=== PATIENT | female | born 1995 | race African-American/Black ===

== ENCOUNTER 2017-05-05 14:14 | Emergency (ER) | payer MEDICAID ==
[~2017-05-05] VITALS: Ht 162.6 cm; Wt 100.0 kg
[2017-05-05 14:16] VITALS: BP 117/76; PULSE 79; RESP 15; TEMP 98.2; O2SAT 99
[2017-05-05] MEDS ORDERED: IBUP800T23 PO (14:56)
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
[2017-05-05] MEDS ORDERED: IBUPROFEN 800 MG TAB PO ONE (15:00)
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
== END 2017-05-05 16:38 | disposition home or self-care (01) ==
LOC: NEPK 14:14
DX: S99.912A Unspecified injury of left ankle, initial encounter (principal); W50.0XXA Accidental hit or strike by another person, initial encounter; J45.909 Unspecified asthma, uncomplicated; Z72.0 Tobacco use
CPT/HCPCS: 73610; 99283; E0113; L1906

== ENCOUNTER 2017-06-27 10:33 | Emergency (ER) | payer MEDICAID ==
[~2017-06-27] VITALS: Ht 162.6 cm; Wt 100.0 kg
[~2017-06-27 10:33] MED LIST: IBUP800T23 PO
[2017-06-27 10:35] VITALS: BP 125/77; PULSE 80; RESP 18; TEMP 98.5; O2SAT 96
--- NOTE | 2017-06-27 11:29 | PD ---
HPI Chief Complaint: Skin Problem Time Seen by Provider: 11:27 Travel History International Travel<30 days: No Contact w/Intl Traveler<30days: No Traveled to known affect area: No History of Present Illness HPI 22-year-old female presents to emergency department with complaint of bedbug bites to her left wrist area, right forearm area, and left flank area for the past few days. Rash is itchy. Mother has the same rash. Denies fever, vomiting. Has not taken any medication or treatments to relieve her symptoms. Denies new exposure to lotions, soaps, detergents, medications, foods, environmental exposures. Symptoms are mild in severity. Allergies to penicillin, cefaclor, montelukast. Has no medical complaints. No known relieving or aggravating factors. No other modifying factors or associated signs and symptoms. History Past Medical Histgory LMP: 06/2017 Social History Alcohol Use: Yes Tobacco Use: Yes Allergies-Medications (Allergen,Severity, Reaction): Coded Allergies: Penicillins (Verified Allergy, Severe, Anaphylaxis, 06/27/17) cefaclor (Verified Allergy, Severe, Anaphylaxis, 06/27/17) montelukast (Verified Allergy, Severe, Anaphylaxis, 06/27/17) Reported Meds & Prescriptions Reported Meds & Active Scripts Active Ibuprofen 800 Mg Tab 800 Mg PO Q6HR PRN Review of Systems Except as stated in HPI: all other systems reviewed are Neg Physical Exam Narrative GENERAL: Well-nourished, well-developed female patient, in no acute distress; afebrile, nontoxic-appearing SKIN: Warm and dry. Multiple erythemic papules noted to left wrist, right forearm, left flank area; Consistent with possible bedbug bites. No signs of cellulitis. HEAD: Atraumatic. Normocephalic. EYES: Pupils equal and round. No scleral icterus. No injection or drainage. ENT: Mucosa pink and moist. Airway patent. NECK: Trachea midline. CARDIOVASCULAR: Regular rate. RESPIRATORY: No accessory muscle use. GASTROINTESTINAL: Obese. MUSCULOSKELETAL: No obvious deformities. No clubbing. No cyanosis. No edema. NEUROLOGICAL: Awake and alert. Oriented 3. No obvious cranial nerve deficits. Motor grossly within normal limits. Normal speech. PSYCHIATRIC: Appropriate mood and affect; insight and judgment normal. Data Data Last Documented VS Vital Signs Date Time Temp Pulse Resp B/P (MAP) Pulse Ox O2 Delivery O2 Flow Rate FiO2 06/27/17 10:35 98.5 80 18 125/77 (93) 96 Room Air MDM Medical Screen Exam Complete: Yes Emergency Medical Condition: No Differential Diagnosis Bedbug bites Narrative Course Vital signs are stable and the patient is stable for outpatient follow-up and treatment. The patient has no urgent or emergent medical complaints. There is no emergent or urgent medical need at this time. I instructed the patient to follow up with their primary care provider. A medical screening exam was performed: At the time of evaluation the presenting medical condition was determined not to be of an emergent nature. The patient was given the option of receiving additional care, but declined. Patient was given options for additional community resources from which to obtain care. The Patient Has Been advised to seek medical attention for their presenting complaint. The patient has been advised to return to the ER at any time if an emergent condition develops. Primary Impression: Encounter for medical screening examination Condition: Stable Sweta Fox Jun 27, 2017 11:29
== END 2017-06-27 11:39 | disposition left against medical advice (07) ==
LOC: NEPK 10:33
DX: R21 Rash and other nonspecific skin eruption (principal)
CPT/HCPCS: 99281

== ENCOUNTER 2017-07-07 13:59 | Emergency (ER) | payer MEDICAID ==
[~2017-07-07] VITALS: Ht 162.6 cm; Wt 100.0 kg
[2017-07-07 14:00] VITALS: BP 124/71; PULSE 79; RESP 14; TEMP 97.7; O2SAT 98
[2017-07-07] MEDS ORDERED: CIPR0.3S2 LEFT EYE (16:09)
--- NOTE | 2017-07-07 16:09 | PD ---
HPI Chief Complaint: Eye Problems/Injury Time Seen by Provider: 16:00 Travel History International Travel<30 days: No Contact w/Intl Traveler<30days: No Traveled to known affect area: No History of Present Illness HPI 22-year-old female presents to the emergency room duration of left eye redness, drainage, irritation for the past week. States she went to her infirmary at school and they recommended she come to the emergency room for antibiotic treatment. She wakes up with crust around her eye and it drains throughout the day. Patient denies changes in visual acuity, significant pain, fever, chills, nausea, vomiting, or other upper respiratory infection signs or symptoms. PFSH Past Medical History Asthma: Yes Respiratory: Yes (ASTHMA) Social History Alcohol Use: Yes Tobacco Use: Yes Substance Use: No Allergies-Medications (Allergen,Severity, Reaction): Coded Allergies: Penicillins (Verified Allergy, Severe, Anaphylaxis, 07/07/17) cefaclor (Verified Allergy, Severe, Anaphylaxis, 07/07/17) montelukast (Verified Allergy, Severe, Anaphylaxis, 07/07/17) Reported Meds & Prescriptions Reported Meds & Active Scripts Active Ciprofloxacin Opth Drops (Ciprofloxacin HCl) 0.3% Soln 2 Drop LEFT EYE Q4H while awake x 5 days. Ibuprofen 800 Mg Tab 800 Mg PO Q6HR PRN Review of Systems Except as stated in HPI: all other systems reviewed are Neg Physical Exam Narrative GENERAL: Well-nourished, well-developed female in no acute distress. Afebrile. Ambulatory. SKIN: Focused skin assessment warm/dry. HEAD: Normocephalic. EYES: PERRL, EOMI without pain, severe injection on the left eye. No obvious drainage. No scleral icterus. No proptosis. Visual acuity 20/50 in the left and 20/25 in the right.. Fluorescein staining reveals contact lens abrasion without corneal ulceration. No foreign body. Negative Dawson sign. NECK: Supple, trachea midline. No JVD or lymphadenopathy. CARDIOVASCULAR: Regular rate and rhythm without murmurs, gallops, or rubs. RESPIRATORY: Breath sounds equal bilaterally. No accessory muscle use. PSYCHIATRIC: No delusional thought processes. No hallucinations. Data Data Last Documented VS Vital Signs Date Time Temp Pulse Resp B/P (MAP) Pulse Ox O2 Delivery O2 Flow Rate FiO2 07/07/17 16:30 07/07/17 14:00 97.7 79 14 98 Orders Orders Ed Discharge Order (07/07/17 16:10) MDM Medical Decision Making Medical Screen Exam Complete: Yes Emergency Medical Condition: Yes Medical Record Reviewed: Yes Differential Diagnosis Conjunctivitis, corneal abrasion, contact lens abrasion Narrative Course 22-year-old female presents to the emergency room for evaluation of left eye redness, drainage, and irritation for the past week. Patient wears contact lenses. Denies changes in visual acuity, photophobia, or pain. Physical exam reveals extreme erythema/injection of the left eye without significant drainage. EOMI without pain. No proptosis. Visual acuity is unaffected. Fluorescein staining reveals contact lens abrasion of the left cornea without significant ulceration. This is contact lens conjunctivitis. Patient was told to throw away the effect contacts and apply ciprofloxacin to affected eye 4 times daily for the next 5-7 days. Told to follow-up with life science technician or return for worsening symptoms per patient understands and agrees to plan. Diagnosis Primary Impression: Conjunctivitis, left eye Qualified Codes: H10.32 - Unspecified acute conjunctivitis, left eye Referrals: Kaiako Kura [place] Additional Instructions: Throw away contaminated contacts. Cipro drops as directed, for 5-7 days. Follow-up with life science technician. Return for worsening symptoms. Scripts Ciprofloxacin Opth Drops (Ciprofloxacin Opth Drops) 0.3% Soln 2 DROP LEFT EYE Q4H for Infection, #1 BOTTLE 0 Refills while awake x 5 days. Prov: Celine Fernandes MD 07/07/17 Disposition: 01 DISCHARGE HOME Condition: Stable Germaine Andrade Jul 07, 2017 16:09
== END 2017-07-07 16:32 | disposition home or self-care (01) ==
LOC: NEPK 13:59
DX: H10.32 Unspecified acute conjunctivitis, left eye (principal); Z72.0 Tobacco use
CPT/HCPCS: 99283

== ENCOUNTER 2017-12-28 16:28 | Emergency (ER) | payer MEDICAID, OTHER ==
[~2017-12-28] VITALS: Ht 162.6 cm; Wt 95.0 kg
[~2017-12-28 16:28] MED LIST changes: +CIPR0.3S2 LEFT EYE; +IBUP1TAB7 PO; -IBUP800T23 PO
[2017-12-28 17:03] VITALS: BP 133/81; PULSE 72; RESP 16; TEMP 98.2; O2SAT 100
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
[2017-12-28] MEDS ORDERED: IBUPROFEN 800 MG TAB PO ONE (17:30)
[2017-12-28] MEDS ORDERED: traMADol HCL 50 MG TAB PO ONE (17:30)
[2017-12-28] MEDS ORDERED: CYCLOBENZAPRINE HCL 10 MG TAB PO ONE (17:30)
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
[2017-12-28] MEDS ORDERED: TRAM50TA PO (17:50)
[2017-12-28] MEDS ORDERED: CYCL10TA PO (17:50)
[2017-12-28] MEDS ORDERED: IBUP1TAB7 PO (17:50)
== END 2017-12-28 18:21 | disposition home or self-care (01) ==
LOC: NEPK 16:28
DX: S16.1XXA Strain of muscle, fascia and tendon at neck level, initial encounter (principal); M62.838 Other muscle spasm; V44.5XXA Car driver injured in collision with heavy transport vehicle or bus in traffic accident, initial encounter
CPT/HCPCS: 72040; 99283